=== PATIENT | female | born 2000 | race Caucasian/White ===

== ENCOUNTER 2024-05-09 00:43 | Emergency (ER) | payer MEDICAID ==
[~2024-05-09] VITALS: Ht 157.5 cm; Wt 79.3 kg
[2024-05-09 00:53] VITALS: TEMP 98.5; O2SAT 100
[2024-05-09 01:00] VITALS: O2SAT 98
[2024-05-09 02:23] VITALS: BP 103/58; PULSE 100; RESP 16
[2024-05-09] MEDS: KETOROLAC 30MG/ML VIAL IM ONE (02:23)
[2024-05-09] MEDS ORDERED: IBUP-2029 MT (03:43)
== END 2024-05-09 03:54 | disposition home or self-care (01) ==
LOC: ER 00:56
DX: S09.90XA Unspecified injury of head, initial encounter (principal); M54.9 Dorsalgia, unspecified; J45.909 Unspecified asthma, uncomplicated; W22.11XA Striking against or struck by driver side automobile airbag, initial encounter; Y93.89 Activity, other specified; Y92.89 Other specified places as the place of occurrence of the external cause; Y99.8 Other external cause status
CPT/HCPCS: 99285; 70450; 81025; 96372; J1885